=== PATIENT | female | born 1995 | race Caucasian/White ===

== ENCOUNTER 2023-12-12 06:08 | Emergency (ER) | payer MEDICAID, OTHER ==
[~2023-12-12] VITALS: Ht 162.6 cm; Wt 97.7 kg
[2023-12-12 06:10] VITALS: BP 139/94; TEMP 97.8; O2SAT 97
[2023-12-12] MEDS ORDERED: TOPA100T12 PO (06:20)
[2023-12-12] MEDS ORDERED: CYCL5TAB PO (06:20)
[2023-12-12] MEDS: TETRACAINE 0.5% OPHTH SOLN 4ML OD ONE (09:30)
[2023-12-12] MEDS: FLUORESCEIN OPHTH 1MG STRIP OD ONE (09:30)
[2023-12-12] MEDS ORDERED: POLY2.5S OD (10:01)
== END 2023-12-12 10:18 | disposition home or self-care (01) ==
LOC: M ED 06:08
DX: H10.31 Unspecified acute conjunctivitis, right eye (principal); Z88.1 Allergy status to other antibiotic agents; Z88.8 Allergy status to other drugs, medicaments and biological substances; Z79.899 Other long term (current) drug therapy; Z79.2 Long term (current) use of antibiotics

== ENCOUNTER 2024-04-23 07:24 | Emergency (ER) | payer MEDICAID, OTHER ==
[~2024-04-23] VITALS: Ht 165.1 cm; Wt 95.5 kg
[~2024-04-23 07:24] MED LIST: CYCL5TAB PO; POLY2.5S OD; TOPA100T12 PO
[2024-04-23] MEDS: ACETAMINOPHEN 500 MG TAB PO ONE (08:25)
[2024-04-23 10:52] VITALS: BP 142/73; TEMP 97.6; O2SAT 98
== END 2024-04-23 10:51 | disposition home or self-care (01) ==
LOC: M ED 07:24
DX: S23.3XXA Sprain of ligaments of thoracic spine, initial encounter (principal); S40.012A Contusion of left shoulder, initial encounter; S39.012A Strain of muscle, fascia and tendon of lower back, initial encounter; Y04.8XXA Assault by other bodily force, initial encounter; Y92.129 Unspecified place in nursing home as the place of occurrence of the external cause; Y93.89 Activity, other specified; Y99.0 Civilian activity done for income or pay; Z79.899 Other long term (current) drug therapy

== ENCOUNTER 2024-12-01 11:47 | Emergency (ER) | payer OTHER ==
[~2024-12-01] VITALS: Ht 162.6 cm; Wt 95.5 kg
[~2024-12-01 11:47] MED LIST changes: -CYCL5TAB PO; +CYCL5TAB4 PO
[2024-12-01] MEDS: KETOROLAC 30 MG/ML 1ML VIAL IM ONE (13:25)
[2024-12-01] MEDS ORDERED: MELO15TA28 PO (14:33)
[2024-12-01] MEDS ORDERED: PRED20TA PO (14:33)
[2024-12-01 14:55] VITALS: BP 115/76; TEMP 97.6; O2SAT 96
== END 2024-12-01 15:01 | disposition home or self-care (01) ==
LOC: M ED 11:47
DX: M54.6 Pain in thoracic spine (principal); M54.50 Low back pain, unspecified; W10.8XXA Fall (on) (from) other stairs and steps, initial encounter; Y92.89 Other specified places as the place of occurrence of the external cause; Y93.89 Activity, other specified; Y99.0 Civilian activity done for income or pay; M41.9 Scoliosis, unspecified; Z88.1 Allergy status to other antibiotic agents; Z88.8 Allergy status to other drugs, medicaments and biological substances; Z79.899 Other long term (current) drug therapy
CPT/HCPCS: 72072; 72110; 96372; 99284; J1885

== ENCOUNTER 2024-12-30 19:09 | Emergency (ER) | payer OTHER ==
[~2024-12-30] VITALS: Ht 162.6 cm; Wt 92.8 kg
[~2024-12-30 19:09] MED LIST changes: +MELO15TA28 PO; +PRED20TA PO
[2024-12-30] MEDS: ONDANSETRON 4MG ORAL DISINTEGRATING TAB PO ONE (22:16)
[2024-12-30] MEDS: ACETAMINOPHEN 325 MG TAB PO ONE (22:37)
[2024-12-30] MEDS: IBUPROFEN 600MG TAB PO ONE (23:33)
[2024-12-31 00:27] VITALS: TEMP 99.1
[2024-12-31] MEDS: predniSONE 20 MG TAB PO ONE (00:52)
[2024-12-31] MEDS: IPRATROPIUM 0.5MG/ALBUTEROL 2.5MG INH SOL UD 3ML (DUONEB) NEB ONE ×2 (01:00)
[2024-12-31 01:40] VITALS: O2SAT 91
[2024-12-31] MEDS ORDERED: PRED20TA PO (01:43)
[2024-12-31 01:49] VITALS: BP 116/56; O2SAT 91
[2025-01-01] MEDS ORDERED: VENTAER INH (14:13)
[2025-01-01] MEDS ORDERED: METR-265 PO (14:14)
[2025-01-01] MEDS ORDERED: CIPR-249 PO (14:15)
[2025-01-01] MEDS ORDERED: OSEL75CA PO (14:24)
[2025-01-01] MEDS ORDERED: LEVO75TAB PO (14:31)
[2025-01-01] MEDS ORDERED: NICO14PA TD (18:55)
[2025-01-01] MEDS ORDERED: ACET32TAB PO (18:55)
[2025-01-01] MEDS ORDERED: OSEL75CA2 PO (18:55)
[2025-01-01] MEDS ORDERED: CEFD300CAP PO (18:55)
[2025-01-01] MEDS ORDERED: PRED20TA PO (18:57)
[2025-01-01] MEDS ORDERED: PROA1AER2 INH (18:57)
== END 2024-12-31 01:51 | disposition home or self-care (01) ==
LOC: M ED 19:09
DX: J09.X2 Influenza due to identified novel influenza A virus with other respiratory manifestations (principal); J45.909 Unspecified asthma, uncomplicated; F17.200 Nicotine dependence, unspecified, uncomplicated; Z88.1 Allergy status to other antibiotic agents; Z88.8 Allergy status to other drugs, medicaments and biological substances; Z91.030 Bee allergy status; Z79.52 Long term (current) use of systemic steroids; Z79.899 Other long term (current) drug therapy
CPT/HCPCS: 71045; 87486; 87581; 87633; 87798; 87880; 94640; 99284; J7512

== ENCOUNTER 2025-01-01 11:21 | Observation (INO) | payer OTHER ==
[~2025-01-01] VITALS: Ht 162.6 cm; Wt 91.4 kg
[2025-01-01 12:35] LABS: HEMATOCRIT 42.9 % (36.0-47.0); HEMOGLOBIN 14.2 g/dl (12.0-15.5); LYMPH # 0.6 10^3/uL (1.5-5.0); LYMPH % 9.7 % (24.0-44.0); MEAN CORPUSCULAR HEMOGLOBIN 30.8 pg (27.0-33.0); MEAN CORPUSCULAR HGB CONC 33.1 g/dl (32.0-36.5); MEAN CORPUSCULAR VOLUME 93.1 fl (80.0-96.0); MONO # 0.4 10^3/uL (0.0-0.8); MONO % 5.7 % (2.0-8.0); NEUTROPHILS # 5.2 10^3/uL (1.5-8.5); NEUTROPHILS % 84.3 % (36.0-66.0); PLATELET COUNT, AUTOMATED 181 10^3/uL (150-450); RED BLOOD COUNT 4.61 10^6/uL (4.00-5.40); WHITE BLOOD COUNT 6.2 10^3/uL (4.0-10.0)
[2025-01-01 13:17] LABS: ALBUMIN 3.9 G/DL (3.2-5.2); ALKALINE PHOSPHATASE 63 U/L (35-104); ALT/SGPT 23 U/L (7.0-40); AST/SGOT 26 U/L (<34); BILIRUBIN,DIRECT 0.1 MG/DL (<0.4); BILIRUBIN,TOTAL 0.4 MG/DL (0.3-1.2); BLOOD UREA NITROGEN 10 MG/DL (9-23); CALCIUM LEVEL 9.1 MG/DL (8.5-10.1); CARBON DIOXIDE LEVEL 26 MMOL/L (20-31); CHLORIDE LEVEL 105 MMOL/L (98-107); CREATININE FOR GFR 0.58 MG/DL (0.55-1.30); GLOMERULAR FILTRATION RATE > 60.0 (>60); GLUCOSE, FASTING 141 MG/DL (60-100); POTASSIUM SERUM 3.9 MMOL/L (3.5-5.1); SODIUM LEVEL 142 MMOL/L (136-145); TOTAL PROTEIN 7.5 G/DL (5.7-8.2)
[2025-01-01 13:28] LABS: VENOUS BASE EXCESS -0.1 (-2.0-2.0); VENOUS HCO3 24.9 MMOL/L (23.0-27.0); VENOUS O2 SATURATION 66.1 % (60.0-80.0); VENOUS PARTIAL PRESSURE O2 33.9 mmHg (30.0-50.0); VENOUS PH 7.391 UNITS (7.330-7.430); VENOUS STANDARD HCO3 23.5 MMOL/L; VENOUS TOTAL CO2 26.2 MMOL/L (24.0-28.0)
[2025-01-01] MEDS: OSELTAMIVIR PHOSPHATE 75 MG CAP PO ONE (13:33)
[2025-01-01] MEDS: dexAMETHasone 20MG/5ML VIAL IV ONE (13:33)
[2025-01-01] MEDS: ONDANSETRON 4MG 2ML VIAL IV ONE (14:07)
[2025-01-01] MEDS: NS (Normal Saline) 0.9% 1,000 ML IV ONE (14:07)
[2025-01-01] MEDS ORDERED: VENTAER INH (14:13)
[2025-01-01] MEDS ORDERED: METR-265 PO (14:14)
[2025-01-01] MEDS ORDERED: CIPR-249 PO (14:15)
[2025-01-01] MEDS ORDERED: OSEL75CA PO (14:24)
[2025-01-01] MEDS ORDERED: LEVO75TAB PO (14:31)
[2025-01-01] MEDS: LevoFLOXacin 750 MG TABLET PO ONE (15:21)
[2025-01-01] MEDS: IPRATROPIUM 0.5MG/ALBUTEROL 2.5MG INH SOL UD 3ML (DUONEB) NEB PRN (15:35)
[2025-01-01 16:37] VITALS: O2SAT 85
[2025-01-01] MEDS ORDERED: ALBUTEROL SULFATE 2.5MG/0.5ML INH NEB SOLN NEB PRN (17:40)
[2025-01-01] MEDS ORDERED: NICOTINE 14 MG/24 HR TRANSDERMAL TD ONE (18:00)
[2025-01-01] MEDS: ACETAMINOPHEN 325 MG TAB PO PRN (18:02)
[2025-01-01] MEDS ORDERED: HOME MED LIST COMPLETE! XX SCH (18:10)
[2025-01-01] MEDS ORDERED: OSEL75CA2 PO (18:55)
[2025-01-01] MEDS ORDERED: CEFD300CAP PO (18:55)
[2025-01-01] MEDS ORDERED: ACET32TAB PO (18:55)
[2025-01-01] MEDS ORDERED: NICO14PA TD (18:55)
[2025-01-01] MEDS ORDERED: PROA1AER2 INH (18:57)
[2025-01-01] MEDS ORDERED: PRED20TA PO (18:57)
[2025-01-01 19:29] LABS: INR 0.98; PARTIAL THROMBOPLASTIN TIME 27.2 SECONDS (24.8-34.2); PROTHROMBIN TIME 13.3 SECONDS (12.5-14.5)
[2025-01-01] MEDS: methylPREDNISolone 125MG 2ML VIAL IV SCH (20:02)
[2025-01-01] MEDS: CEFDINIR 300 MG CAP (OMNICEF) PO SCH (20:02)
[2025-01-01] MEDS: IPRATROPIUM 0.5MG/ALBUTEROL 2.5MG INH SOL UD 3ML (DUONEB) NEB SCH (20:02)
[2025-01-01] MEDS: OSELTAMIVIR PHOSPHATE 75 MG CAP PO SCH (20:03)
[2025-01-02 06:03] LABS: HEMATOCRIT 39.6 % (36.0-47.0); HEMOGLOBIN 13.2 g/dl (12.0-15.5); MEAN CORPUSCULAR HEMOGLOBIN 30.7 pg (27.0-33.0); MEAN CORPUSCULAR HGB CONC 33.3 g/dl (32.0-36.5); MEAN CORPUSCULAR VOLUME 92.1 fl (80.0-96.0); PLATELET COUNT, AUTOMATED 184 10^3/uL (150-450); WHITE BLOOD COUNT 6.6 10^3/uL (4.0-10.0)
[2025-01-02 06:36] LABS: ALBUMIN 3.4 G/DL (3.2-5.2); ALKALINE PHOSPHATASE 52 U/L (35-104); ALT/SGPT 21 U/L (7.0-40); AST/SGOT 15 U/L (<34); BILIRUBIN,TOTAL 0.3 MG/DL (0.3-1.2); BLOOD UREA NITROGEN 11 MG/DL (9-23); CALCIUM LEVEL 9.4 MG/DL (8.5-10.1); CARBON DIOXIDE LEVEL 27 MMOL/L (20-31); CHLORIDE LEVEL 107 MMOL/L (98-107); CREATININE FOR GFR 0.52 MG/DL (0.55-1.30); GLOMERULAR FILTRATION RATE > 60.0 (>60); GLUCOSE, FASTING 138 MG/DL (60-100); POTASSIUM SERUM 4.1 MMOL/L (3.5-5.1); SODIUM LEVEL 143 MMOL/L (136-145); TOTAL PROTEIN 6.7 G/DL (5.7-8.2)
[2025-01-02] MEDS: ENOXAPARIN 40MG/0.4ML SYRINGE (J1650 PER 10MG) SC SCH (08:00)
[2025-01-02 08:38] VITALS: BP 136/81; TEMP 98.2; O2SAT 92
[2025-01-02] MEDS ORDERED: NICOTINE 14 MG/24 HR TRANSDERMAL TD SCH (09:00)
== END 2025-01-02 08:55 | disposition home or self-care (01) ==
LOC: M ED 11:21 → M ED INP 11:22
PROVIDERS: ADMIT Internal Medicine; ATTEND Internal Medicine
DX: J96.01 Acute respiratory failure with hypoxia (principal); J09.X2 Influenza due to identified novel influenza A virus with other respiratory manifestations; J02.0 Streptococcal pharyngitis; Z79.2 Long term (current) use of antibiotics; Z79.52 Long term (current) use of systemic steroids; F17.210 Nicotine dependence, cigarettes, uncomplicated; W50.3XXA Accidental bite by another person, initial encounter; Y99.0 Civilian activity done for income or pay; Y93.9 Activity, unspecified
CPT/HCPCS: 36415; 71045; 80048; 80053; 80076; 82803; 84145; 85025; 85027; 85610; 85730; 87040; 87486; 87581; 87633; 87798; 87880; 93005; 93041; 94640; 94760; 96374; 96375; 96376; 99285; J1100; J2405; J2919